=== PATIENT | female | born 1990 | race Caucasian/White ===

== ENCOUNTER → 2022-10-22 14:54 | Outpatient (BNVA) | payer SELFPAY | PROVIDERS: Family Provider Family Medicine; PCP Orthopaedic Surgery; Visit Provider Nurse Practitioner Family | DX: S52.612A Displaced fracture of left ulna styloid process, initial encounter for closed fracture (principal); S52.502A Unspecified fracture of the lower end of left radius, initial encounter for closed fracture; W01.0XXA Fall on same level from slipping, tripping and stumbling without subsequent striking against object, initial encounter | CPT/HCPCS: 73110 ==

== ENCOUNTER 2022-10-24 10:12 | Day surgery (SDC) | payer SELFPAY ==
[2022-10-24] VITALS (16 sets, daily range): BP systolic 130–169; BP diastolic 89–107; PULSE 88–116; RESP 16–21; TEMP 36.2–36.5; O2SAT 96–100
--- NOTE | 2022-10-24 08:32 | W.PM.OPSUD ---
Surgery/Procedure H&P Update DATE OF PROCEDURE: October 24, 2022 DATE H&P PERFORMED: 10/22/22 H&P UPDATE INFORMATION: I have reviewed H&P completed within last 30 days PLANNED PROCEDURE: Operation Date: 10/24/22 13:40 Proposed Procedures p Open reduction internal fixation of the left distal radius: 67475,S52.92XA(Left) - Omar Allen MD
[2022-10-24] MEDS: sodium chloride 0.9% 1,000 ML 30 ML IV (10:59)
[2022-10-24 11:03] LABS: OR HCG Qualitative Urine Negative (Negative)
[2022-10-24] MEDS: ceFAZolin 2,000 MG in sodium chloride 0.9% (plus) 50 ML 100 MG IV (12:08)
[2022-10-24] MEDS: sodium chloride 0.9% 100 mL Bag XX (12:33)
--- NOTE | 2022-10-24 12:43 | ANES.PREANE2 ---
Pre-Anesthetic Assessment Height/Weight: Height 1.7 m Weight 72.575 kg Temp Pulse Resp BP Pulse Ox O2 Del Method 97.7 F 100 16 143/107 100 10/24/22 10:50 10/24/22 10:50 10/24/22 10:50 10/24/22 10:50 10/24/22 10:50 10/24/22 10:50 Preop Diagnosis: Fracture left distal radius Operation Date: 10/24/22 13:40 Proposed Procedures p Open reduction internal fixation of the left distal radius: 98110,S52.92XA(Left) - Omar Allen MD Familial anesthetic complications: none Was Beta Lexus taken within 24 hours: N/A Was Clonidine taken within 24 hours: N/A Last intake: Intake Last Liquid Date 10/23/22 Last Liquid Time 20:00 Last Solid Date 10/23/22 Last Solid Time 20:00 Social No alcohol and No tobacco Smoke meghann Exam alert, oriented x 3, clear to auscultation bilaterally and regular rate & rhythm Airway Submandibular: within normal limits Cervical ROM: within normal limits Mallampati: Class II Dentition: full Anesthetic Plan ASA status: 2 Anesthesia: General Medications/Allergies Home Medications Medication Instructions Recorded Confirmed Last Taken Type hydrocodone 5 mg-acetaminophen 325 1 tab PO Q4H #30 tabs 10/24/22 Unknown Rx mg tablet Allergies Allergy/AdvReac Type Severity Reaction Status Date / Time amoxicillin Allergy rash Verified 10/23/22 13:26 Penicillins Allergy ALGY-Rash Verified 10/23/22 13:26 Current Medications Generic Name Dose Route Start Last Admin Trade Name Freq PRN Reason Stop Dose Admin Sodium Chloride 1,000 mls @ 30 mls/hr 10/24/22 11:00 10/24/22 10:59 Sodium Chloride 0.9% IV 10/25/22 10:59 30 mls/hr .Q24H SAMM Administration PFSH Anesthesia Female Reproductive History Date of last menstrual period: 10/20/22 Data Anesthesia Cardiac Studies: No Data to Display
--- NOTE | 2022-10-24 13:06 | XR_ITS ---
WS: [id number] XR wrist LT 1V [id number] REASON FOR EXAM: OR PICS FINDINGS: Plate and screw fixation of comminuted transverse fracture of the distal left radial metaphysis. Fracture fragments and surgical appliances are in proper position and alignment. XR/XR wrist LT 1V [id number] IMPRESSION: Left wrist fracture with fixation as above.
--- NOTE | 2022-10-24 13:15 | PM.OP ---
"Operative Report Date of procedure: October 24, 2022 Pre-op diagnosis: Preop Diagnosis Fracture left distal radius Post-op diagnosis: same Post-op diagnosis: Extra-articular fracture left distal radius Procedure done: Open reduction and internal fixation extra-articular fracture left distal right Pathology: none sent Surgeon: Omar Allen Anesthesia: General Estimated blood loss (mL): 5 Tourniquet time (min): 27 Condition: stable Disposition: PACU Brief History: Liberty is a 32-year-old female who sustained a extra-articular fracture to the left distal radius with a lost of the reduction. She is seen in my clinic where surgical reconstruction was chosen to restore to acceptable alignment and hopefully improve long-term function Procedure: Initial attempts were made at closed reduction however a satisfactory stable reduction could not be obtained. A decision was made to proceed with open reduction internal fixation.A 5 cm long incision was made along over the flexor carpi radialis tendon. Dissection was carried down through the tendon sheath. Dissection was carried down bluntly to the pronator quadratus. The pronator quadratus was elevated off of the distal radius leaving a cuff for later repair. Closed reduction was accomplished of the distal radius. A [id number] short narrow plate was applied. It was fixed distally with 5 locking screws and proximally with 3 bicortical screws. Intraoperative imaging showed excellent position of the hardware. The wound was irrigated with saline. The pronator quadratus was reapproximated with 2-0 Vicryl. Subcutaneous tissues were closed with 2-0 Vicryl. The skin was closed with skin myriam. Sterile dressings were applied. The patient was taken to outpatient surgery in stable condition."
[2022-10-24] MEDS: fentaNYL 50 mcg/mL INJ 2mL IVP (13:25)
[2022-10-24] MEDS: HYDROmorphone 1 mg/mL INJ 1 mL 0.5 MG IVP ×2 (13:40→13:50)
[2022-10-24] MEDS: HYDROcodone-acetaminophen 5-325 mg Tablet 1 TAB PO (14:23)
[2022-10-24] MEDS: ondansetron 2 mg/ML SDV 2 mL 4 MG IVP (14:23)
--- NOTE | 2022-10-24 14:37 | ANE.PACU2 ---
Inpatient post-anesthesia follow up: Airway intact: Yes Vital signs: Temperature 97.2 F Pulse Rate 91 Respiratory Rate 18 Blood Pressure 165/92 Pulse Oximetry 97 Oxygen Delivery Me thod Room Air Oxygen Flow Rate 6 Fraction of Inspir ed Oxygen Hydration adequate: Yes Nausea and vomiting: No Pain level: 3 Mental status: Baseline
== END 2022-10-24 15:40 | disposition home or self-care (01) ==
PROVIDERS: PCP Orthopaedic Surgery; Visit Provider Orthopaedic Surgery
PROC: (CPT 25607; principal; 2022-10-24 13:20)
DX: S52.552A Other extraarticular fracture of lower end of left radius, initial encounter for closed fracture (principal); W01.0XXA Fall on same level from slipping, tripping and stumbling without subsequent striking against object, initial encounter
CPT/HCPCS: 25607; 73100; 76000; 81025; 84703; C1713; J0131; J0690; J1100; J1170; J1580; J2405; J2704; J3010; J7030

== ENCOUNTER 2022-11-06 15:30 | Outpatient (CLI) | payer SELFPAY | END 2022-11-06 15:31 | disposition home or self-care (01) | LOC: SPT 15:31 | PROVIDERS: PCP Orthopaedic Surgery; Visit Provider Orthopaedic Surgery | DX: Z47.89 Encounter for other orthopedic aftercare (principal) | CPT/HCPCS: 97760; L3908 ==

== ENCOUNTER → 2022-11-27 15:03 | Outpatient (BNVA) | payer SELFPAY | PROVIDERS: PCP Orthopaedic Surgery; Visit Provider Orthopaedic Surgery | DX: Z98.890 Other specified postprocedural states (principal); S52.92XA Unspecified fracture of left forearm, initial encounter for closed fracture; X58.XXXA Exposure to other specified factors, initial encounter | CPT/HCPCS: 73110 ==